=== PATIENT | male | born 1960 | race Caucasian/White ===

== ENCOUNTER 2017-05-07 12:58 | Emergency (ER) | payer SELFPAY ==
[~2017-05-07] VITALS: Ht 180.3 cm; Wt 72.6 kg
[2017-05-07] MEDS ORDERED: TDAP DIPH,PERTUSS,TET VAC/PF 0.5 ML DISP.SYRIN IM ONE ×2 (13:15→13:26)
--- NOTE | 2017-05-07 15:06 | NUR ---
Patient discharged to home in stable conditon. Written and verbal after care instructions given. Patient verbalizes understanding of instructions. No further questions or concerns noted. Pt is pending for FRIEND to pick him up.
--- NOTE | 2017-05-07 15:12 | NUR ---
Pt's friend came to chart picker pt. Pt was ambulatory with steady gait. NAD noted. VSS.
[2017-05-07 15:14] VITALS: BP 119/72
== END 2017-05-07 15:15 | disposition home or self-care (01) ==
LOC: ER 12:58
DX: S02.2XXA Fracture of nasal bones, initial encounter for closed fracture (principal); S02.82XA Fracture of other specified skull and facial bones, left side, initial encounter for closed fracture; V89.2XXA Person injured in unspecified motor-vehicle accident, traffic, initial encounter; Y93.89 Activity, other specified; Y92.89 Other specified places as the place of occurrence of the external cause; Y99.8 Other external cause status
CPT/HCPCS: 70450; 70486; 90715; A4217; A4663